=== PATIENT | female | born 1955 | race Caucasian/White ===

== ENCOUNTER → 2018-07-20 | Outpatient (CLI) | payer OTHER ==
[~2018-07-20] MED LIST: None per pt
[2018-07-20 16:03] LABS: BASOPHILS # (AUTO) 0.05 x10^3/uL (0-0.1); BASOPHILS % (AUTO) 1 % (0-1); EOSINOPHILS % (AUTO) 2 % (1-7); LYMPHOCYTES # (AUTO) 1.73 x10^3/uL (1-3.4); LYMPHOCYTES % (AUTO) 21 % (22-44); MD NO; MEAN CORPUSCULAR HEMOGLOBIN 32.3 pg (27.0-34.8); MEAN CORPUSCULAR HGB CONC 33.9 g/dL (32.4-35.8); MEAN CORPUSCULAR VOLUME 95.4 fL (80-100); MEAN PLATELET VOLUME 8.3 fL (7.4-10.4); MONOCYTES # (AUTO) 0.57 x10^3/uL (0.2-0.8); MONOCYTES % (AUTO) 7 % (2-9); NEUTROPHILS # (AUTO) 5.75 x10^3/uL (1.8-6.8); NEUTROPHILS % (AUTO) 69 % (42-75); PLATELET COUNT 321 x10^3/uL (130-400); RED BLOOD COUNT 4.55 x10^6/uL (3.82-5.3); RED CELL DISTRIBUTION WIDTH 13.5 % (9.6-15.2)
[2018-07-20 16:12] LABS: ANION GAP 7 mmol/L (5-15); CALCIUM 9.3 mg/dL (8.5-10.1); CHLORIDE 104 mmol/L (98-107)
[2018-07-20 16:13] LABS: CREATININE 0.93 mg/dL (0.55-1.02)
[2018-07-20 16:14] LABS: MICROSCOPIC NOT IND
[2018-07-20 16:19] LABS: CULTURE INDICATED? NO
== END | disposition home or self-care (01) ==
LOC: STAR 14:57
PROVIDERS: ATTEND Obstetrics & Gynecology Gynecology
DX: N84.0 Polyp of corpus uteri (principal); N95.0 Postmenopausal bleeding; I51.7 Cardiomegaly; Z85.820 Personal history of malignant melanoma of skin
CPT/HCPCS: 36415; 71046; 80048; 81003; 85025; 93005

== ENCOUNTER 2018-07-28 09:03 | Day surgery (SDC) | payer OTHER ==
[~2018-07-28] VITALS: Ht 177.8 cm; Wt 98.4 kg
[2018-07-28] MEDS ORDERED: LACTATED RINGERS 1,000 ML IV SCH (09:29)
[2018-07-28] MEDS ORDERED: ACETAMINOPHEN 500 MG TABLET PO ONE (09:30)
[2018-07-28 09:55] VITALS: BP 131/71
[2018-07-28] MEDS ORDERED: OXYcodone 5 MG/5 ML ORAL.SOL UDC PO PRN (10:30)
[2018-07-28] MEDS ORDERED: HYDROmorphone 2 MG/ML, 1ML IVPush PRN (10:30)
[2018-07-28] MEDS ORDERED: DIPHENHYDRAMINE 50 MG/ML, 1ML IVPush PRN (10:30)
[2018-07-28] MEDS ORDERED: PROCHLORPERAZINE 5 MG/ML, 2ML IV PRN (10:30)
[2018-07-28] MEDS ORDERED: METOPROLOL 1 MG/ML, 5ML IV PRN (10:30)
[2018-07-28] MEDS ORDERED: FENTANYL PF 100 MCG/2ML IV PRN (10:30)
[2018-07-28] MEDS ORDERED: HALOPERIDOL 5 MG/ML IV PRN (10:30)
[2018-07-28] MEDS ORDERED: LABETALOL 5MG/ML, 20ML IV PRN (10:30)
[2018-07-28] MEDS ORDERED: hydrALAzine 20 MG/ML, 1ML IV PRN (10:30)
[2018-07-28] MEDS ORDERED: PROMETHAZINE 25 MG/ML, 1ML IV PRN (10:30)
[2018-07-28] MEDS ORDERED: MEPERIDINE/PF 25MG/0.5ML IVPush PRN (10:30)
[2018-07-28] MEDS ORDERED: EPINEPHRINE 1 MG/ML, 1ML ONE (10:46)
[2018-07-28] MEDS ORDERED: LIDOCAINE 1%, 20ML ONE (10:46)
[2018-07-28] MEDS ORDERED: SILVER NITRATE STICK TP ONE (10:46)
[2018-07-28] MEDS ORDERED: PROPOFOL 10 MG/ML, 20ML ONE (11:24)
[2018-07-28] MEDS ORDERED: CEFAZOLIN 1,000 MG ONE (11:24)
[2018-07-28] MEDS ORDERED: ROCURONIUM 10 MG/ML,10ML ONE (11:24)
[2018-07-28] MEDS ORDERED: DEXAMETHASONE 4 MG/ML, 1ML ONE (11:24)
[2018-07-28] MEDS ORDERED: SUCCINYLCHOLINE 20 MG/ML, 10ML ONE (11:24)
[2018-07-28] MEDS ORDERED: ONDANSETRON 2MG/ML, 2ML ONE (11:24)
[2018-07-28] MEDS ORDERED: FENTANYL PF 100 MCG/2ML ONE ×2 (11:24→12:34)
[2018-07-28] MEDS ORDERED: KETOROLAC 30 MG/1 ML ONE (11:24)
[2018-07-28] MEDS ORDERED: OXYcodone 5 MG/5 ML ORAL.SOL UDC ONE (12:23)
[2018-07-28] MEDS ORDERED: MEPERIDINE/PF 25MG/ML,1ML ONE (12:23)
== END 2018-07-28 14:32 | disposition home or self-care (01) ==
LOC: OUT 09:03
PROVIDERS: ATTEND Obstetrics & Gynecology Gynecology
DX: N95.0 Postmenopausal bleeding (principal); N84.0 Polyp of corpus uteri; I10 Essential (primary) hypertension; Z98.890 Other specified postprocedural states
CPT/HCPCS: 58558; 88305; J0171; J0330; J0690; J1100; J1885; J2175; J2405; J2704; J3010; J3490; J7120